=== PATIENT | female | born 1965 | race Caucasian/White ===

== ENCOUNTER 2024-06-18 02:16 | Inpatient (IN) | payer BC, SELFPAY ==
[2024-06-17] VITALS (9 sets, daily range): BP systolic 117–175; BP diastolic 66–100
[2024-06-17 16:47] LABS: % Basophils 0.1 % (0-2); % Eosinophils 0.1 % (0-6); % Immature Granulocytes 0.8 % (0-0.5); % Lymphocytes 21.8 % (20.5-51.1); % Monocytes 6.8 % (1.7-9.3); % Neutrophils 70.4 % (42.2-75.2); Absolute Immature Granulocytes 0.1 10^3/uL (0-0.05); Absolute Lymphocytes 2.7 10^3/uL (1.2-3.4); Absolute Monocytes 0.8 10^3/uL (0.1-0.6); Absolute Neutrophils 8.6 10^3/uL (1.4-6.5); Hematocrit 44.4 % (37.0-47.0); Hemoglobin 15.1 g/dL (12.0-16.0); Mean Corpuscular Hgb 30.3 pg (27.0-31.0); Mean Corpuscular Volume 89.2 fL (81.0-99.0); Mean Platelet Volume 10.9 fL (7.4-10.4); Nucleated Red Blood Cells % 0 %; Platelet Count 317 10^3/uL (130-400); Red Blood Cell Count 4.98 10^6/uL (4.20-5.40); Red Cell Dist. Width 13.5 % (11.5-14.5); White Blood Cell Count 12.1 10^3/uL (4.8-10.8)
[2024-06-17 17:04] LABS: ALT (SGPT) 535 U/L (0-35); AST (SGOT) 246 U/L (14-36); Albumin 4.7 g/dl (3.5-5.0); Alkaline Phosphatase 99 U/L (38-126); Blood Urea Nitrogen 19 mg/dl (7-17); Calcium 9.6 mg/dl (8.4-10.2); Carbon Dioxide 24 mmol/L (22-30); Chloride 108 mmol/L (98-107); Glucose 139 mg/dl (70-99); Lipase 178 U/L (23-300); Potassium 4.3 mmol/L (3.5-5.1); Sodium 142 mmol/L (135-145); Total Bilirubin 0.3 mg/dl (0.2-1.3); Total Protein 7.2 g/dl (6.3-8.2); eGFR > 60.00
--- NOTE | 2024-06-17 17:52 | ED.GENMED ---
History of Present Illness
General
Chief Complaint: Chest Pain
Time Seen by Provider: 06/17/24 17:42
History of Present Illness
History of Present Illness:
58-year-old female with history of hypertension presents to the emergency department for evaluation of chest pain radiating to the thoracic back over the past 3 days. Pain worsened today prompting her ED evaluation. She notes a dull achy pain that
is associated with heart palpitations and occasional sweating. Seems to worsen during physical exertion and improves at rest but does not fully resolve. Does not radiate to the abdomen or to the extremities. No history of similar pain. She does
use tobacco and has a positive family history of cardiac disease. No leg swelling but does report right calf discomfort, travel to [facility] [place] within the past 3 months
Past History
Past History
ED Past Medical History: Psychiatric (Anxiety/depression), Other (Migraine headaches, diverticulosis), Other (Status post cholecystectomy, diverticulosis, depression) and Other (History of cholecystitis)
ED Past Surgical History: Cholecystectomy
Social History
Tobacco: Smoker
Alcohol: Occasional (Once weekly )
Drug: None
Personal:
Living: with family
Employment: Employed
Family History
Family History: Other (Noncontributory )
Review of Systems
Review of Systems
Allergies reviewed?: Yes
All Other Systems: ROS reviewed and negative except as documented in HPI and ROS
Phy Exam
Physical Exam
Physical Exam:
GEN: Well appearing, NAD, WDWN
Eyes: PERRLA, EOMs intact, no scleral icterus
HENT: NCAT, oral mucosa moist
Lungs: CTAB, no wheezes, rales, rhonchi, normal chest wall excursion
Cardiac: RRR, no M/R/G, no peripheral edema. Radial pulses 2+ bilat
Abdomen: S, NT, ND, NABS, no masses or hepatosplenomegaly
Neuro: AO x 3, no focal deficits to BUE/BLE, normal sensation throughout
MSK: No gross deformity or ecchymosis. No edema. No digital clubbing
Skin: No rashes, petechiae. Normal color, no pallor or jaundice.
Psych: Calm, cooperative, proper hygiene
Scores
Heart Score for Chest Pain Patients
STEMI patient?: No
History: Moderately Suspicious
ECG: Normal
Age: >45 - <65 years
Risk Factors: >/= 3 Risk Factors or History of CAD
Troponin: >1 - <3 x Normal Limit
Heart Score for Chest Pain Patients: 5
Heart Score Risk: 20.3% MACE over next 6 weeks
Course
Orders/Labs/Results
Orders:
Orders
06/17/24 16:09
EKG [Electrocardiogram (*1)] Urgent
Reason for Study: Chest Pain
EKG- Treatment ONCE
06/17/24 16:29
Complete Blood Count/With Diff Urgent
Comprehensive Metabolic Panel Urgent
Lipase Urgent
06/17/24 17:51
Aspirin Chewable [Low Strength Aspirin] 324 mg PO NOW STA
Nitroglycerin Sublingual [Nitrostat (Sublingual)] 0.4 mg SL NOW STA
CR Chest - 2 Views Urgent
Comment:
Reason For Exam: chest pain
06/17/24 18:03
D-Dimer Urgent
Troponin I Routine
06/17/24 19:01
EKG- Treatment ONCE
06/17/24 19:21
Nitroglycerin Sublingual [Nitrostat (Sublingual)] 0.4 mg SL NOW STA
06/17/24 20:45
NT-proBNP Urgent
Troponin I Urgent
06/17/24 21:00
Electrocardiogram (*1) Urgent
Reason for Study: Chest Pain
06/17/24 21:20
CT Chest/abd/pel W Iv Cont Urgent
Comment:
Reason For Exam: chest pain/transaminitis
Abnormal Lab Results
06/17/24
16:29
WBC 12.1 H 10^3/uL
(4.8-10.8)
MPV 10.9 H fL
(7.4-10.4)
Abs Immat Gran (auto) 0.1 H 10^3/uL
(0-0.05)
Absolute Neuts (auto) 8.6 H 10^3/uL
(1.4-6.5)
Absolute Monos (auto) 0.8 H 10^3/uL
(0.1-0.6)
Immature Gran % 0.8 H %
(0-0.5)
Chloride 108 H mmol/L
(98-107)
BUN 19 H mg/dl
(7-17)
Glucose 139 H mg/dl
(70-99)
AST 246 H U/L
(14-36)
ALT 535 H* U/L
(0-35)
06/17/24 16:29
06/17/24 16:29
Vital Signs
Initial and Last Documented VS:
Initial Vital Signs
Temp Pulse Resp BP Pulse Ox
98.3 F 96 18 175/100 96
06/17/24 16:19 06/17/24 16:19 06/17/24 16:19 06/17/24 16:19 06/17/24 16:19
Last Documented Vital Signs
Temp Pulse Resp BP Pulse Ox
98.3 F 84 24 125/79 93
06/17/24 16:19 06/17/24 22:45 06/17/24 22:45 06/17/24 22:00 06/17/24 22:45
MDM/Problems Addressed
MDM/Problems Addressed:
Unclear etiology of chest pain, stones consider coronary syndrome at this time given exertional chest pain and nonnegative troponin. She is also noted to have significant transaminitis however nonobstructive pattern. There is no evidence for acute
disease causing her transaminitis. D-dimer is reassuring against PE and she does not have a clinical presentation concerning for aortic dissection. Ultimately she is high close for coronary disease exertional discomfort negative troponins we will
admit to the hospitalist service for further cardiac workup and cardiology consultation
*Critical Care Note
Total Time (30-74mins, 75-104mins- exclusive of procedures): Not Applicable
ED Attending Note
-
Portions of this chart may have been created with voice recognition software.� Occasional wrong word or��sound alike� substitutions may have occurred due to the inherent limitations of voice recognition software.
Discharge Plan
Departure
Patient Disposition: Admit
Date of Disposition: 06/17/24
Time of Disposition: 22:57
Admit to: Telemetry
Presentation/result/management discussed w/ accepting MD/DO: Hospitalist
Discharge Problem:
Chest pain with high risk of acute coronary syndrome
Prescriptions:
No Action
venlafaxine [Effexor] 100 MG tablet
300 mg PO DAILY
topiramate 100 MG tablet
100 mg PO BID
ibuprofen 600 MG tablet
600 mg PO Q6HPRN PRN (Reason: pain with food) Qty: 20 0RF
rizatriptan [Maxalt] 10 MG tablet
10 mg PO ONCE PRN (Reason: headache) Qty: 3 0RF
Rx Instructions:
take 2-3 hours later if still with headache but take no more than 2 in 24 hours as we spoke about
atorvastatin 10 MG tablet
10 mg PO DAILY
methylphenidate HCl [Concerta] 36 MG tablet extended release 24hr
36 mg PO DAILY
lurasidone [Latuda] 20 MG tablet
20 mg PO HS
amoxicillin-pot clavulanate 1 TABLET tablet
1 tab PO BID Qty: 28 0RF
oxycodone-acetaminophen 5 MG/325 MG tablet
1 tab PO Q4HPRN PRN (Reason: pain) Qty: 16 0RF
Referrals:
Berkley Barker DO [Family Provider] -
Interventions
Interventions:
*Risk Screen - Suicide Last Done: 06/17/24 16:19
*General Assessment Last Done: 06/17/24 16:19
*Neglect/Abuse Screening Last Done: 06/17/24 19:33
ED- Fall Risk Assessment Last Done: 06/17/24 20:10
*ED COVID-19 Vaccine History Last Done: 06/17/24 16:19
ED- Cardiac Assessment Last Done: 06/17/24 19:33
Discharge Date and Time
Print Language: BULGARIAN
[2024-06-17] MEDS: NITROSTAT (SUBLINGUAL) 0.4 MG SL ×2 (17:55→19:25)
[2024-06-17] MEDS: LOW STRENGTH ASPIRIN 324 MG PO (17:55)
[2024-06-17 18:28] LABS: D-Dimer 0.45 ug/mlFEU (0.00-0.50)
[2024-06-17 18:36] LABS: Troponin I 0.024 ng/ml
[2024-06-17 21:18] LABS: NT-proBNP 49.9 pg/ml; Troponin I 0.027 ng/ml
[2024-06-18] VITALS (7 sets, daily range): BP systolic 120–151; BP diastolic 71–87; BMI 35.7
--- NOTE | 2024-06-18 00:04 | HPS.HSE ---
Family Physician
-
Family Physician: Berkley Barker
Chief Complaint
-
Midepigastric pain through the back
History of Present Illness
58-year-old female complaining of upper mid epigastric pain radiating through to her back over the past 3 days. She reports the pain was worse when it started 2 to 3 days ago., However she has also had decreased appetite not drinking her morning
coffee in the a.m. She has had pain associated with nausea, belching, diaphoresis, anxiety, decreased appetite. She has not paid attention whether the pain is worse after eating however notes she is not able to finish things such as her morning
cup of coffee. She denies any current alcohol use. She states used to drink 4-5 nights a week 4 to drinks daily age [age] over the past 11 years she typically drinks once a month. She denies any history of IV drug use, hepatitis. She does have
tattoos. She also reports a constant headache for the past 45 days her neurologist recently put her on 60 mg of prednisone x 5 days then 40 mg x 2 then 20 mg for the next 2 days to break her migraine. She has also been taking Nurtec only once a
day she is allowed 8 tablets/month. She has been taking Fioricet 1 tablet every 4 hours which equals a Tylenol amount of 1000 mg daily for the last 30 to 45 days for a left frontal parietal headache which has not improved. She reports she vapes
all day long she was a former smoker on and off for 15 years approximately 1 pack a day switched to vaping 5 years ago.
Patient's past medical history of cholecystectomy, anxiety, depression, migraine headaches, diverticulosis, active smoker vapes multiple times a day prior nicotine cigarette smoker 15 years 1 pack a day
Medical History
Past Medical History
Past Medical History: Reports Other
Additional Past Medical History:
cholecystectomy, anxiety, depression, migraine headaches, diverticulosis, active smoker vapes multiple times a day prior nicotine cigarette smoker 15 years 1 pack a day
Past Surgical History: Reports Other
Additional Past Surgical History:
Cholecystectomy
Social History
Tobacco: Vaping (All day long, former 15-year 1 pack a day nicotine smoker stopped 5 years ago converted to vapes)
Alcohol: Former (Age [age] 4-5 drinks a week +4-5 drinks daily now drinks once a month past 8 years)
Drug: None
Personal:
Living: With Family
Family History
Family History: Not pertinent
Allergies / Home Medications
Allergies reflects when Allergies were last updated in [facility].
Home Medications with original date entered in [facility]
Allergy/Medication List:
Medications on admission are unable to be verified or confirmed at this time.
Review of Systems
-
History Source: Patient
A 12 point ROS was completed and negative except as noted: Yes
Constitutional: Denies Fever, Fatigue or Chills
EENT: Denies Sore Throat or Runny Nose
Respiratory: Denies Cough or Trouble Breathing
Cardiac: Reports Chest Pain (Epigastric pain) and Diaphoresis (Epigastric pain with diaphoresis); Denies Syncope
Abdomen/GI: Reports Abdominal Pain (Epigastric), Nausea and Other (Decreased oral appetite); Denies Vomiting, Diarrhea, Constipated, Bloody Stools or Black Stools
: Denies Dysuria, Frequency, Flank Pain, Incontinence or Difficulty Voiding
Musculoskeletal: Denies Joint Pain or Edema
Skin: Denies Itching or Rash
Neurological: Denies Dizzy, Headache or Weakness
Endocrine: Reports No Symptoms
Hematologic/Lymphatic: Reports No Symptoms
Psych: Reports Calm
Physical Exam
Vital Signs
Vital Signs
Temp Pulse Resp BP Pulse Ox
98.3 F 84 24 125/79 93
06/17/24 16:19 06/17/24 22:45 06/17/24 22:45 06/17/24 22:00 06/17/24 22:45
Physical Exam
General: Conversant and Pain (Left temporal headache); No Fever or Chills
HEENT: NormoCephalic, Anicteric, Moist mucous membranes, PERRLA, [place] Conjunctivae, No Ptosis and Neck Nontender
Respiratory: Clear; No Wheezes, Rales or Rhonchi
Cardiac: S1/S2 and Regular Rhythm; No Murmur, Rub, Gallop or Peripheral Edema
GI: Soft, Non Tender, Non Distended, Normal Bowel Sounds and No Hepatosplenomegaly
Rectal: Deferred by Provider
Genito-urinary: Deferred by me
Musculoskeletal: No Clubbing, No Cyanosis and No Edema
Skin: Warm and Dry; No Rash or Jaundice
Neuro: AO x 3, No Motor Deficits, Nonfocal/grossly intact, Cranial Nerves Intact and No Sensory Deficits; No Slurred Speech, Facial Droop, Tremors or Sedated
Psych: Calm
Laboratory Results
-
06/17/24 16:29
06/17/24 16:29
Laboratory Results
Total Bilirubin 0.3 mg/dl (0.2-1.3) 06/17/24 16:29
AST 246 U/L (14-36) H 06/17/24 16:29
ALT 535 U/L (0-35) H* 06/17/24 16:29
Alkaline Phosphatase 99 U/L (38-126) 06/17/24 16:29
Troponin I 0.027 ng/ml 06/17/24 20:45
Lipase 178 U/L (23-300) 06/17/24 16:29
Data Reviewed
-
CT Scan: Report Reviewed by me
Lab Data: Labs Reviewed by me
Impression/Plan
-
Impression/plan:
Inpatient telemetry
#Acute transaminitis/mild diffuse intrahepatic biliary dilation concern for intrahepatic bile duct stone versus recently passed
ALT 535, AST 246, alk phos 99
WBC 12.1 with slight left shift, temp 98.3, 125/79
-IV NSS
-Consult GI
-Check lipid profile
-Check Tylenol level given patient has been taking 1000 mg of Tylenol straight for the last 30 to 45 days
-Follow CBC, CMP check GGT, B12, folate
CT chest abdomen pelvis with IV contrast:
CHEST:
1. Moderate-sized calcified central superior disc extrusion at T7/T8 causing mild spinal cord compression and central canal stenosis.
2. Mild dependent subsegmental atelectasis and scarring in the right lower lobe.
ABDOMEN and PELVIS:
1. Mild diffuse hepatic steatosis.
2. Mild diffuse intrahepatic biliary dilatation.
3. Previous cholecystectomy.
4. Moderate amount of fecal material in the proximal colon.
5. Grade 1 anterolistheses of L3 on L4 and L4 on L5 secondary to severe facet joint arthrosis.
6. Transitional lumbosacral vertebral segment (sacralization of L5).
#Nonischemic myocardial injury
Troponin 0.024 > troponin 0.027-will trend
EK bpm, QTc 420 MS sinus rhythm with PACs otherwise normal compared to EKG June 17 at 1611
#Acute on chronic intractable migraine headache
-Patient recently is almost finished a prednisone taper 60 mg x 5 days, 40 mg x 2 days then 20 mg x 2 days(patient has 2 days left of this dose) she reports this was prescribed by her neurologist
Dr.ROY GIRARD
-Will check Tylenol level as she has been taking 1000 mg straight for the last 30 to 45 days and her 1 tab of Fioricet
-Patient takes Nurtec 1 a day 8 times a month
-Will try IV Benadryl for pain, possible Toradol
#Nicotine vape abuse
Prior nicotine cigarette abuse
-Patient vapes she states all day long
-Prior cigarette smoker 1 pack a day x 15 years on and off converted to vape 5 years ago
-Cessation advised
-Nicotine patch 21 mg
#Former alcohol abuse/binge drinker
Drink from age [age] 4 to 5 days a week 4-6 cocktails, beer or wine
-Last 8 years drinks approximately 1-2 drinks a month
-Check GGT, B12, folate
Obesity due to excess calorie consumption
Weight loss recommended
Affects all aspects of care
DVT prophylaxis
Subcu heparin
Full code
--- NOTE | 2024-06-18 00:06 | W.PN.UPDATE ---
Update Note
Progress Note Update
Patient seen condition with PILLO. I agree with findings of history and physical. As well as the assessment and plan unless otherwise stated.
Briefly, this is a 58-year-old female with past medical history significant for hyperlipidemia, anxiety, depression, migraine headaches and status post cholecystectomy who presents to the emergency department with 3 days of intermittent chest pain.
Patient reports chest pain associated with exertion. She reports that she has been doing more housework lately and when she carries objects around the house she notices substernal chest pain as well as epigastric chest pain radiating to the back.
Then she stops and the chest pain actually intensifies with pounding in her chest after several minutes this subsides and she is able to rest and then continue her activity. She reports that there is association with diaphoresis. She denies any
inspirational chest pain. She denies any cough fevers chills. She denies any sick contacts. Patient denies any true asthma COPD. She denies any associated nausea or vomiting. She denies any diarrhea. She denies any prior history of CAD or
hypertension. She reports family history of heart disease but unable to specify with CAD or not. Patient does report dyspnea and chest pain with any higher level physical activity.
In the emergency department she was afebrile, blood pressure was 125/60 with a pulse of 82 satting 94% on room air. CBC had a white count of 12.1 but otherwise unremarkable. Electrolytes BUN/creatinine were unremarkable. ECG shows normal sinus
rhythm at rate of 83 without any ischemic changes. Troponin was 0.02 and also 0.02 on the next. Chest x-ray shows no acute infiltrate. She had D-dimer which was borderline and then had a CT chest abdomen pelvis. There is no pulmonary embolism.
Had mild diffuse hepatic steatosis with mild diffuse intrahepatic biliary dilation.
Patient is currently chest pain-free while resting. She did have episode of chest pain that responded to sublingual nitroglycerin.
Assessment and plan
Obese 58-year-old with history of hyperlipidemia presenting to the emergency department with somewhat atypical chest pain which is localized to the epigastric region radiating to the back but associated with some degree of physical exertion. Also
associated with some dyspnea on exertion and diaphoresis. She has moderate risk for CAD. Negative EKG, negative troponin.
Chest pain
- admit to obs telemetry
- negative trop no need to cycle but can get repeat with cp
- ecg with cp then nitroglycerin
- echo in am, lipid panel and a1c
- outpatient echo
Hepatic steatosis with diffuse intrahepatic biliary ductal dilation. Moderate degree of transaminitis w/o obstructive pattern. Recent high tylenol use (1g/day) and prior ETOH use. Imaging does not show obstruction. Possible biliary dz, toxic vs
viral hepatitis vs MASLD/MASH. Tylenol level is negative.
- trend lfts
- acute viral panel
- hold tylenol for now
- lipid panel as above
- continue her statin for now
- GI consult, further imaging to rule out other causes
DVT PPX - lovenox sq
Code status - full code
[2024-06-18 00:59] LABS: Acetaminophen < 10 ug/ml (10-30)
--- NOTE | 2024-06-18 02:07 | DOWNTIME ---
There was a [employer] Downtime on 06/18/2024 from 0100 to 06/18/2024 at 0205 . Downtime documentation of patient's care, including medication administrations, has been reconciled in the electronic record per guidelines. Refer to the
patient's paper chart under the miscellaneous tab to see printed paper medication records and downtime forms.
--- NOTE | 2024-06-18 03:00 | PTCARENOTE ---
Received patient from ED via stretcher. Patient ambulated from stretcher to bed independently. Oriented patient to room and placed call seo within reach.
[2024-06-18] MEDS: NICODERM TRANSDERMAL 21 MG TRANSDERM (03:24)
[2024-06-18] MEDS: NSS 1000 IV ×2 (03:24→15:27)
[2024-06-18] MEDS: REGLAN 10 MG IV ×2 (03:25→13:34)
[2024-06-18] MEDS: TORADOL 15 MG IV ×3 (03:26→20:18)
[2024-06-18] MEDS: NSS (PRESERVATIVE FREE) 10 ML IV ×3 (03:26→20:15)
[2024-06-18] MEDS: PROTONIX IV 40 MG IV ×3 (03:26→20:15)
[2024-06-18 05:24] LABS: INR 0.95
[2024-06-18 05:27] LABS: % Basophils 0.3 % (0-2); % Immature Granulocytes 0.7 % (0-0.5); % Lymphocytes 49.4 % (20.5-51.1); % Monocytes 7.7 % (1.7-9.3); % Neutrophils 40.9 % (42.2-75.2); Absolute Eosinophils 0.1 10^3/uL (0-0.7); Absolute Immature Granulocytes 0.1 10^3/uL (0-0.05); Absolute Lymphocytes 6.7 10^3/uL (1.2-3.4); Absolute Neutrophils 5.5 10^3/uL (1.4-6.5); Hematocrit 40.8 % (37.0-47.0); Mean Corp Hgb Conc. 34.3 g/dL (33.0-37.0); Mean Corpuscular Hgb 30.7 pg (27.0-31.0); Mean Corpuscular Volume 89.5 fL (81.0-99.0); Mean Platelet Volume 10.9 fL (7.4-10.4); Nucleated Red Blood Cells % 0 %; Platelet Count 252 10^3/uL (130-400); Red Blood Cell Count 4.56 10^6/uL (4.20-5.40); Red Cell Dist. Width 13.7 % (11.5-14.5); White Blood Cell Count 13.5 10^3/uL (4.8-10.8)
[2024-06-18 05:50] LABS: APTT 23.3 Sec (23.4-35.0)
[2024-06-18 06:06] LABS: ALT (SGPT) 520 U/L (0-35); AST (SGOT) 178 U/L (14-36); Albumin 4.1 g/dl (3.5-5.0); Alkaline Phosphatase 89 U/L (38-126); Blood Urea Nitrogen 22 mg/dl (7-17); Carbon Dioxide 24 mmol/L (22-30); Chloride 107 mmol/L (98-107); Estimated Creatinine Clearance 99 ml/min; Glucose 81 mg/dl (70-99); Phosphorus 4.1 mg/dl (2.5-4.5); Sodium 141 mmol/L (135-145); Total Bilirubin 0.2 mg/dl (0.2-1.3); Total Protein 6.4 g/dl (6.3-8.2); eGFR > 60.00
[2024-06-18 06:09] LABS: B-Hydroxybutyrate 0.11 mmol/L (0.02-0.27)
[2024-06-18 06:28] LABS: Alcohol None Detected; GGTP 214 U/L (12-43)
[2024-06-18 07:07] LABS: Folate 17.2 ng/ml (2.76-20); Vitamin B12 767 pg/ml (239-931)
--- NOTE | 2024-06-18 07:35 | CON.GI ---
Addendum entered and electronically signed by Yamilet Vasquez MD 06/18/24 20:10:
I saw and examined the patient.
The DIRECTOR OF ROTC's note was reviewed and I agree with the note.
-chest pain
-elevated LFT/ CT imaging - fatty liver/ mild intrahepatic biliary dilatation/ hx of cholecystectomy.
-chronic constipation- with moderate stool on CT
-T7/[address] chest
plan
will follow MRI/MRCP
trend LFT
cardiology eval for chest pain at the discretion of medical team
Original Note:
Consultation
-
Date/Time Consultation Requested: 06/18/24 0030
Date/Time Consultation Performed: 06/18/24 1030
Requesting Provider: PILLO Rome
Performing Provider: PILLO Steven, Yamilet Vasquez MD
Reason for Consultation: chest pain
Medical History
Chief Complaint / HPI
Chief Complaint: chest pain
History of Present Illness:
Pt is a 58yo present with hx prior ev, anxiety/depression, migraines, diverticulosis, hypercholesterolemia, tobacco/vape abuse, D+E with onset of chest pain last 2-3 days . On admission noted with WBC 12,100, with bili 0.3, AST 246, ALT 535,
alk phos 99. with slight improvement after admission. CT chest/abd/pelvis with noted T7/8 compression with central disc extrusion T7/8 with mild spinal cord compression and canal stenosis, hepatic steatosis, mild diffuse intrahepatic biliary
dilatation, prior colon moderate stool, lumbar spinal disease. Peak trop 0.027. Pt did have some improvement with nitro in ER. + recent Tylenol use with level <10 on admission.
Pt states pain better with rest and worse with activity with slight improvement today. She has some chronic constipation stools weekly nausea with symptoms for years and EGD in 2021 noted normal esophagus, gastric erythema, normal duodenum,
few gastric polyps bx mild chronic inflammation. She denies vomiting, diarrhea, or rectal bleeding. + NSAID use about 1 tablet weekly. 07/2016 colonoscopy coombs The entire examined colon appeared normal repeat 5 years.
Past Medical History
Past Medical History: Hypercholesterolemia, Psychiatric (anxiety/depression) and Other (migraine, diverticulosis, hepatic steatosis )
Past Surgical History: Cholecystectomy, Gynecological (D+E with tubal) and Other (corneal surgery )
Social History
Tobacco: Vaping
Alcohol: Former
Drug: None
Personal:
Living: With Family
Employment: Not Employed
Family History
Family History: Other (son with fatty liver )
Allergies / Home Medications
Allergy/AdvReac Type Severity Reaction Status Date / Time
Sulfa (Sulfonamide Allergy Severe Swelling Verified 06/17/24 16:22
Antibiotics)
�Medication �Instructions �Recorded
topiramate 100 mg tablet 100 mg PO BID 03/02/09
venlafaxine 100 mg tablet (Effexor) 300 mg PO DAILY 03/02/09
ibuprofen 600 mg tablet 600 mg PO Q6HPRN PRN pain with 01/13/13
food #20 tabs
rizatriptan 10 mg tablet (Maxalt) 10 mg PO ONCE PRN headache #3 tabs 05/06/17
amoxicillin 875 mg-potassium 1 tab PO BID #28 tabs 01/10/21
clavulanate 125 mg tablet
atorvastatin 10 mg tablet 10 mg PO DAILY 01/10/21
lurasidone 20 mg tablet (Latuda) 20 mg PO HS 01/10/21
methylphenidate HCl 36 mg 36 mg PO DAILY 01/10/21
tablet,extended release 24 hr
(Concerta)
oxycodone-acetaminophen 5 mg-325 1 tab PO Q4HPRN PRN pain #16 tabs 01/10/21
mg tablet
Review of Systems
-
History Source: Patient
Cardiac: Reports Chest Pain
Abdomen/GI: Reports Nausea (chronic ) and Constipated
: Reports No Symptoms
Musculoskeletal: Reports No Symptoms
Skin: Reports No Symptoms
Neurological: Reports Weakness
Endocrine: Reports No Symptoms
Hematologic/Lymphatic: Reports No Symptoms
Vital Signs
Temp Pulse Resp BP Pulse Ox
97.9 F 64 18 120/83 98
06/18/24 02:41 06/18/24 02:41 06/18/24 02:41 06/18/24 02:41 06/18/24 03:00
Physical Exam
Exam
General: Well Developed, Well Nourished and No Apparent Distress
HEENT: Normocephalic and Anicteric
Respiratory: Clear
Cardiac: Regular Rhythm
GI: Soft, Non Tender and Non Distended
Genito-urinary: No Costovertebral Tender
Musculoskeletal: No Clubbing and No Cyanosis
Skin: Warm and Dry
Neuro: Awake, Alert and AO x 3
Psych: Calm
Results
WBC 13.5 10^3/uL (4.8-10.8) H 06/18/24 04:59
Hgb 14.0 g/dL (12.0-16.0) 06/18/24 04:59
Hct 40.8 % (37.0-47.0) 06/18/24 04:59
MCV 89.5 fL (81.0-99.0) 06/18/24 04:59
Plt Count 252 10^3/uL (130-400) D 06/18/24 04:59
Absolute Neuts (auto) 5.5 10^3/uL (1.4-6.5) 06/18/24 04:59
PT 13.0 Sec (11.4-14.6) 06/18/24 04:56
INR 0.95 06/18/24 04:56
APTT 23.3 Sec (23.4-35.0) L 06/18/24 04:56
Sodium 141 mmol/L (135-145) 06/18/24 04:59
Potassium 4.0 mmol/L (3.5-5.1) 06/18/24 04:59
Chloride 107 mmol/L (98-107) 06/18/24 04:59
Carbon Dioxide 24 mmol/L (22-30) 06/18/24 04:59
BUN 22 mg/dl (7-17) H 06/18/24 04:59
Creatinine 0.7 mg/dL (0.6-1.0) 06/18/24 04:59
Calcium 9.0 mg/dl (8.4-10.2) 06/18/24 04:59
Total Bilirubin 0.2 mg/dl (0.2-1.3) 06/18/24 04:59
AST 178 U/L (14-36) H 06/18/24 04:59
ALT 520 U/L (0-35) H* 06/18/24 04:59
Alkaline Phosphatase 89 U/L (38-126) 06/18/24 04:59
Lipase 178 U/L (23-300) 06/17/24 16:29
Diagnostic Image Results:
06/17/24 CT Chest/abd/pel W Iv Cont
1. Moderate-sized calcified central superior disc extrusion at T7/T8 causing mild spinal cord compression and central canal stenosis.
2. Mild dependent subsegmental atelectasis and scarring in the right lower lobe.
ABDOMEN and PELVIS:
1. Mild diffuse hepatic steatosis.
2. Mild diffuse intrahepatic biliary dilatation.
3. Previous cholecystectomy.
4. Moderate amount of fecal material in the proximal colon.
5. Grade 1 anterolisthesis of L3 on L4 and L4 on L5 secondary to severe facet joint arthrosis.
6. Transitional lumbosacral vertebral segment (sacralization of L5).
Prior GI Procedures:
07/2021 EGD Coom[facility] - Normal esophagus. Biopsied.
- Bilious gastric fluid.
- Erythematous mucosa in the gastric body and antrum.
Biopsied.
- Normal examined duodenum. Biopsied.
- A few gastric polyps. Biopsied.
07/2016 colonoscopy coombs The entire examined colon appeared normal repeat 5 years
Assessment / Plan
-
Pt is a 58yo present with hx prior ev, anxiety/depression, migraines, diverticulosis, hypercholesterolemia, tobacco/vape abuse, D+E with onset of chest pain last 2-3 days . On admission noted with WBC 12,100, with bili 0.3, AST 246, ALT 535,
alk phos 99. with slight improvement after admission. CT chest/abd/pelvis with noted T7/8 compression with central disc extrusion T7/8 with mild spinal cord compression and canal stenosis, hepatic steatosis, mild diffuse intrahepatic biliary
dilatation, prior colon moderate stool, lumbar spinal disease. Peak trop 0.027. Pt did respond to nitro in ER.
-exertional chest pain
-elevated LFT's
-leukocytosis
-mild diffuse intrahepatic biliary dilatation
-hepatic steatosis on CT
-chronic constipation- with moderate stool on CT
-T7/[address] chest
-occasional NSAID use
-hx ev
other med problems:
-tobacco/vape use
-hypercholesteremia
-diverticulosis
-migraines
-anxiety/depression
-family hx fatty liver
PLAN:
Etiology of chest pain related to cardiac etiology though trop low on admission but some improvement with nitro, biliary with some rise in LFT's and ductal dilation on CT, constipation related as chronic issue with chronic nausea, compression fx vs
other
for MRI abdomen for further eval
slight improved LFT's today
add Miralax daily to treat constipation
await further hospitalist eval for cardiac etiology and noted T 7/8 compression on imaging
hepatitis panel pending
Tylenol <10
OP follow up for fatty liver
-
-
Thank you for consultation and allowing me to participate in the patient's care. Please call the manager registration GI physician during the after hours with any questions or concerns.
[2024-06-18] MEDS: HEPARIN 5000 UNITS SC (08:37)
[2024-06-18] MEDS: MIRALAX 17 GRAMS PO (12:37)
[2024-06-18 13:39] LABS: Amphetamines Negative (Negative); Barbiturates Positive (Negative); Benzodiazepines Negative (Negative); Buprenorphine Negative (Negative); Cocaine Negative (Negative); Marijuana Negative (Negative); Methadone Negative (Negative); Methamphetamines Negative (Negative); Opiates Negative (Negative); Phencyclidine Negative (Negative); Tricyclic Antidepressants Negative (Negative)
--- NOTE | 2024-06-18 14:33 | W.PN.HOSP.TC ---
Today's Communication/Plan
-
Cardiology eval
Follow LFTS
Assessment / Plan
Assessment / Plan
58-year-old female with mid epigastric pain, decreased appetite. She recently had headaches for which she was prescribed prednisone for migraines. She also takes Nurtec once a day and Fioricet she is a former smoker but she vapes now
CT scan of chest abdomen and [id number] calcified central superior disc extrusion T7/T8 causing mild spinal cord compression and central canal stenosis. Mild dependent subsegmental atelectasis and scarring in the right lower lobe.
Mild diffuse hepatic steatosis, diffuse intrahepatic biliary dilatation, previous cholecystectomy, moderate amount of fecal material in the proximal colon, grade 1 anterolisthesis of L3 on L4 and L4 on L5. Sacralization of L5
MRI-prior cholecystectomy. Mild prominence of the intrahepatic and extrahepatic biliary ducts without evidence of choledocholithiasis or biliary obstruction. Could represent cholecystectomy or possibly recently passed stone.
Awake alert oriented
Cardiovascular system S1-S2 appreciated
Chest clear to auscultation
No spine tenderness
Abdomen soft and nontender
# Chest pain-
States mostly exertional also has exertional shortness of breath.
She has seen Dr. Bernardino Marie
? Gastritis from recent prednisone, ibuprofen-continue PPI. Hold off on any steroids
Colonoscopy July 2016-normal
Endoscopy July 2021-normal esophagus, erythematous mucosa in the gastric body and antrum, normal duodenum, few gastric polyps
EKG sinus rhythm with PACs-2 sets of troponins negative
Cardiology consultation also requested as patient states that she has a family history of heart disease.
# Acute on chronic intractable migraine headache
She finished prednisone taper prescribed by her neurologist Dr. Morris
Takes Nurtec-to be continued
Also on Effexor, Topamax-continue
Neurology evaluation
# Abnormal LFTs, dilated intrahepatic biliary ducts-check MRI
Check hepatitis panel
Tylenol level less than 10-hold Tylenol and statin
GI evaluation
MRI as above
# Vaping of nicotine
History of smoking cigarettes
Cessation counseling
Nicotine patch
# History of alcohol abuse in the past until age 41
No 1-2 drinks per month
# Hyperlipidemia-hold statin secondary to elevated LFTs
# Anxiety and depression-continue Latuda, Effexor
# Hepatic steatosis
# Central superior disc extrusion T7 and T8, anterolisthesis L3 on L4 and L4 on [id number] with outpatient spine-patient made aware. Outpatient follow-up with spine
# Obesity with a BMI of 35
# DVT prophylaxis-Lovenox
# Full code
Anticipated Discharge: Within 24 hours
Subjective/Interval History
-
Date of Service: June 18, 2024
Objective Data
-
Labs:
Laboratory Results
06/18/24 06/18/24
04:56 04:59
WBC 13.5 H
Hgb 14.0
Hct 40.8
Plt Count 252 D
PT 13.0
INR 0.95
APTT 23.3 L
Sodium 141
Potassium 4.0
Chloride 107
Carbon Dioxide 24
BUN 22 H
Creatinine 0.7
Glucose 81
Calcium 9.0
Total Bilirubin 0.2
AST 178 H
ALT 520 H*
Alkaline Phosphatase 89
Vital Signs:
Vital Signs
Temp Pulse Resp BP Pulse Ox
97.7 F 62 20 130/75 96
06/18/24 12:09 06/18/24 12:09 06/18/24 12:09 06/18/24 12:09 06/18/24 12:09
I&O
06/17/24 06/18/24 06/19/24
06:59 06:59 06:59
Intake Total 0 / 0
Balance 0 / 0
--- NOTE | 2024-06-18 14:36 | CON.CAR ---
Addendum entered and electronically signed by Zay Macdonald MD 06/18/24 15:45:
I saw and examined the patient.
The SURFACE PLATE FINISHER or PA's note was reviewed and I agree with the note.
Comment: General: Well developed, well nourished in NAD.
Neck: Supple, no JVD, HJR, carotids +2 B/L, no bruits bilaterally.
Heart: Non displaced PMI, RRR, no murmurs, No S3, S4, no rubs.
Lungs: Clear to auscultation bilaterally, no wheeze, rhonchi, rubs bilaterally,
normal expiratory phase.
Abdomen: Normal bowel sounds, soft, non-tender, non-distended.
Extremities: No clubbing, cyanosis or edema bilaterally.
Neuro: Grossly nonfocal, awake, alert and oriented x3.
Deanna has a history of daily vaping, hypertension, hyperlipidemia. She presents with chest pain and shortness of breath. She had CT of the chest was negative for pulmonary embolism. Troponin was negative x 2. ECG with nonspecific ST and T wave
changes. She initially was given nitro with some relief and a second nitro had additional relief. Of note her chest pain was for 30 minutes.
Will check echocardiogram. Will check exercise sestamibi stress test to exclude ischemia. If negative symptoms are not likely cardiac.
Original Note:
Consultation
Consultation Request
Date/Time Consultation Requested: 06/18/24
Date/Time Consultation Performed: 06/18/24
Requesting Provider: Dr. Rojas
Performing Provider: Dr. Macdonald
Reason for Consultation: Chest pain
Medical History
-
History of Present Illness:
Patient came to [facility] yesterday with a BEAN for 45 days and chest pain for 3 days and was admitted with elevated LFTs, cardiology has been consulted for chest pain and ATKINSON. Patient went to [facility] for chest pain radiating to her back over the last 3 days.
Chest pain happening with activity and resolves with rest. No resting symptoms. Patient also has ATKINSON. Patient had CT chest that was negative for PE and no calcific atherosclerotic plaque in the coronary arteries. Troponin was within the normal range
x2. ECG was SR with nonspecific ST changes. Patient was given NTG SL x1 with some improvement in pain and so a 2nd dose of NTG SL was given with additional pain relief. Patient had similar chest pain and ATKINSON in 2021 and saw ATC at that time with
testing noted above.
PMH:
Daily vaping and former smoker
h/o ETOH use disorder, cut down to once a month in 2007
HTN
Hyperlipidemia
Past Medical History
Past Medical History: Other (in HPI)
Past Surgical History: Cholecystectomy and Gynecological
Social History
Tobacco: Vaping
Alcohol: Other (used to drink 4 drinks a day, but cut back to a few times a month years)
Drug: None
Personal:
Living: With Family
Family History
Family History: Cancer
Allergies / Home Medications
Allergy/AdvReac Type Severity Reaction Status Date / Time
Sulfa (Sulfonamide Allergy Severe Swelling Verified 06/17/24 16:22
Antibiotics)
�Medication �Instructions �Recorded �Confirmed �Type
topiramate 100 mg tablet 100 mg PO BID 03/02/09 06/18/24 History
venlafaxine 100 mg tablet (Effexor) 375 mg PO DAILY 03/02/09 06/18/24 History
ibuprofen 600 mg tablet 600 mg PO Q6HPRN PRN pain with 01/13/13 06/18/24 Rx
food #20 tabs
atorvastatin 10 mg tablet 10 mg PO DAILY 01/10/21 06/18/24 History
lurasidone 20 mg tablet (Latuda) 20 mg PO HS 01/10/21 06/18/24 History
methylphenidate HCl 36 mg 36 mg PO DAILY 01/10/21 06/18/24 History
tablet,extended release 24 hr
(Concerta)
oxycodone-acetaminophen 5 mg-325 1 tab PO Q4HPRN PRN pain #16 tabs 01/10/21 06/18/24 Rx
mg tablet
Metoprolol 25 mg PO DAILY 06/18/24 06/18/24 History
omeprazole 20 mg tablet,delayed 20 mg PO DAILY 06/18/24 06/18/24 History
release
topiramate 150 mg PO BID 06/18/24 06/18/24 History
Review of Systems
-
History Source: Patient
All other systems: Negative unless noted
Physical Exam
Vital Signs
Temp Pulse Resp BP Pulse Ox
97.7 F 62 20 130/75 96
06/18/24 12:09 06/18/24 12:09 06/18/24 12:09 06/18/24 12:09 06/18/24 12:09
GEN: NAD. AAOx3
HEENT: mmm
LUNGS: RA. CTA B/L without audible wheeze
CV: Reg, S1/S2, no murmur
ABD: soft, BS+, NT, ND
EXT: No clubbing, cyanosis, lesions or edema B/L
NEURO: Gross non-focal
SKIN: Warm, dry and pink. No rash
Lab Results
06/18/24 04:59
06/18/24 04:59
Troponin I 0.027 ng/ml 06/17/24 20:45
Jms-N-Auywylvteyl Pept 49.9 pg/ml 06/17/24 20:45
Impression / Plan
-
PCP: Dr. Berkley Barker
Cardiology: Dr. Marie, last seen in 2021
Impression:
Admitted with chest pain 06/17/24
ATKINSON
Serially normal Troponin
BEAN
Elevated LFTs
Daily vaping and former smoker
h/o ETOH use disorder, cut down to once a month in 2007
HTN
Hyperlipidemia
Exercise stress test 08/29/21: GVH study, completed 9 minutes 36 seconds of Giuliano protocol reaching 85% of maximum predicted heart rate with no ST segment depression observed before during or after exercise, considered a negative stress test
Cardiac MRI 10/17/21: DH study, no MRI evidence of diffuse infiltrative myocardial disease, global systolic RV/LV function normal, LV viability normal, none valvular disease
Echo 08/10/21: GVH study, EF 50 to 55%, mild concentric LVH, top normal RV size with normal RV systolic function and mildly increased RV wall thickness, no MS/MR, normal aortic valve without evidence of stenosis or insufficiency
Plan:
-Patient came to [facility] yesterday with a BEAN for 45 days and chest pain for 3 days and was admitted with elevated LFTs, cardiology has been consulted for chest pain and ATKINSON. Patient went to [facility] for chest pain radiating to her back over the last 3
days. Chest pain happening with activity and resolves with rest. No resting symptoms. Patient also has ATKINSON. Patient had CT chest that was negative for PE and no calcific atherosclerotic plaque in the coronary arteries. Troponin was within the normal
range x2. ECG was SR with nonspecific ST changes. Patient was given NTG SL x1 with some improvement in pain and so a 2nd dose of NTG SL was given with additional pain relief. Patient had similar chest pain and ATKINSON in 2021 and saw ATC at that time
with testing noted above.
-ECG reviewed by me is SR with nonspecific ST changes. Tele reviewed by me is SR without arrhythmia.
-Troponin serially normal despite days of chest pain.
-Chest pain improved with NTG SL x2 in the ER.
-Check echo, ordered by me
-Echo in 2021 showed mildly increased RV wall thickness that led to cardiac MRI which was unremarkable, but patient did not remember any of this testing.
-Check Lexiscan stress test in AM, ordered by me.
-Will restart outpatient dose of Toprol XL 25 mg daily after stress test tomorrow. BP overall controlled while outpatient dose of Toprol XL is on hold.
-GI saw patient and MRI abdomen ordered, possible recently passed stone.
-Outpatient dose of atorvastatin 10 mg daily is on hold due to elevated LFTs.
[2024-06-18] MEDS: LOVENOX 40 MG SC (17:32)
[2024-06-18] MEDS: TOPAMAX 50 MG PO (20:17)
[2024-06-18] MEDS: TOPAMAX 100 MG PO (20:17)
[2024-06-18] MEDS: LATUDA 20 MG PO (21:26)
[2024-06-18] MEDS: ZOFRAN 4 MG IV (21:26)
[2024-06-18 21:52] LABS: Hepatitis B Surface Antigen Negative (Negative)
[2024-06-18 22:10] LABS: Hepatitis C Antibody Negative (Negative)
[2024-06-19 02:48] LABS: Hepatitis B Surface Antibody Negative
[2024-06-19 03:59] VITALS: BP 140/92
[2024-06-19] MEDS: TORADOL 15 MG IV ×2 (04:15→14:34)
[2024-06-19] MEDS: ZOFRAN 4 MG IV (04:16)
[2024-06-19 06:56] VITALS: BP 135/81
[2024-06-19 07:01] LABS: % Basophils 0.8 % (0-2); % Eosinophils 3.1 % (0-6); % Immature Granulocytes 0.7 % (0-0.5); % Lymphocytes 44.8 % (20.5-51.1); % Monocytes 9.3 % (1.7-9.3); % Neutrophils 41.3 % (42.2-75.2); Absolute Basophils 0.1 10^3/uL (0-0.2); Absolute Eosinophils 0.3 10^3/uL (0-0.7); Absolute Immature Granulocytes 0.1 10^3/uL (0-0.05); Absolute Monocytes 0.8 10^3/uL (0.1-0.6); Absolute Neutrophils 3.7 10^3/uL (1.4-6.5); Hematocrit 43.3 % (37.0-47.0); Hemoglobin 14.5 g/dL (12.0-16.0); Mean Corp Hgb Conc. 33.5 g/dL (33.0-37.0); Mean Corpuscular Hgb 30.1 pg (27.0-31.0); Mean Platelet Volume 10.6 fL (7.4-10.4); Nucleated Red Blood Cells % 0 %; Platelet Count 227 10^3/uL (130-400); Red Blood Cell Count 4.81 10^6/uL (4.20-5.40); Red Cell Dist. Width 13.4 % (11.5-14.5)
[2024-06-19 07:36] LABS: ALT (SGPT) 352 U/L (0-35); AST (SGOT) 70 U/L (14-36); Alkaline Phosphatase 84 U/L (38-126); Blood Urea Nitrogen 15 mg/dl (7-17); Carbon Dioxide 26 mmol/L (22-30); Chloride 106 mmol/L (98-107); Direct Bilirubin 0.1 mg/dl (0.0-0.4); Estimated Creatinine Clearance 99 ml/min; Glucose 88 mg/dl (70-99); Magnesium 2.2 mg/dl (1.6-2.3); Potassium 4.7 mmol/L (3.5-5.1); Sodium 139 mmol/L (135-145); Total Bilirubin 0.5 mg/dl (0.2-1.3); Total Protein 6.3 g/dl (6.3-8.2); eGFR > 60.00
[2024-06-19] MEDS: TOPAMAX 50 MG PO (08:04)
[2024-06-19] MEDS: TOPROL XL 25 MG PO (08:04)
[2024-06-19] MEDS: TOPAMAX 100 MG PO (08:04)
[2024-06-19] MEDS: EFFEXOR XR 75 MG PO (08:04)
[2024-06-19] MEDS: EFFEXOR XR 300 MG PO (08:04)
[2024-06-19] MEDS: NSS (PRESERVATIVE FREE) 10 ML IV (08:08)
[2024-06-19] MEDS: PROTONIX IV 40 MG IV (08:08)
--- NOTE | 2024-06-19 09:35 | W.PN.HOSP.TC ---
Today's Communication/Plan
-
Stress test
Assessment / Plan
Assessment / Plan
58-year-old female with mid epigastric pain, decreased appetite. She recently had headaches for which she was prescribed prednisone for migraines. She also takes Nurtec once a day and Fioricet she is a former smoker but she vapes now
CT scan of chest abdomen and njksqn-fbfpnqap-dlfjp calcified central superior disc extrusion T7/T8 causing mild spinal cord compression and central canal stenosis. Mild dependent subsegmental atelectasis and scarring in the right lower lobe.
Mild diffuse hepatic steatosis, diffuse intrahepatic biliary dilatation, previous cholecystectomy, moderate amount of fecal material in the proximal colon, grade 1 anterolisthesis of L3 on L4 and L4 on L5. Sacralization of L5
MRI-prior cholecystectomy. Mild prominence of the intrahepatic and extrahepatic biliary ducts without evidence of choledocholithiasis or biliary obstruction. Could represent cholecystectomy or possibly recently passed stone.
Awake alert oriented
Cardiovascular system S1-S2 appreciated
Chest clear to auscultation
No spine tenderness
Abdomen soft and nontender
# Chest pain-
States mostly exertional also has exertional shortness of breath.
She has seen Dr. Bernardino Marie
? Gastritis from recent prednisone, ibuprofen-continue PPI. Hold off on any steroids
Radiculopathy pain T7/T8?
Colonoscopy July 2016-normal
Endoscopy July 2021-normal esophagus, erythematous mucosa in the gastric body and antrum, normal duodenum, few gastric polyps
EKG sinus rhythm with PACs-2 sets of troponins negative
Cardiology consultation also requested as patient states that she has a family history of heart disease.
Stress test today
# Acute on chronic intractable migraine headache
She finished prednisone taper prescribed by her neurologist Dr. Morris
Takes Nurtec-to be continued
Also on Effexor, Topamax-continue
BEAN better
Neurology follow up as OP
# Abnormal LFTs, dilated intrahepatic biliary ducts
Hepatitis panel negso far
Tylenol level less than 10-hold Tylenol and statin
LFTs are improving
GI evaluation
MRI as above
? Passed a stone
# Vaping of nicotine
History of smoking cigarettes
Cessation counseling done
Nicotine patch
# Constipation-bowel regimen ordered
# History of alcohol abuse in the past until age 41
No 1-2 drinks per month
# Hyperlipidemia-hold statin secondary to elevated LFTs
# Anxiety and depression-continue Latuda, Effexor
# Hepatic steatosis
# Central superior disc extrusion T7 and T8, anterolisthesis L3 on L4 and L4 on C9-[id number]-mv with outpatient spine-patient made aware. Outpatient follow-up with spine
# Obesity with a BMI of 35
# DVT prophylaxis-Lovenox
# Full code
Discussed with nursing today
Anticipated Discharge: Within 24 hours
Subjective/Interval History
-
Date of Service: June 19, 2024
Objective Data
-
Labs:
Laboratory Results
06/19/24
06:13
WBC 9.0
Hgb 14.5
Hct 43.3
Plt Count 227
Sodium 139
Potassium 4.7
Chloride 106
Carbon Dioxide 26
BUN 15
Creatinine 0.7
Glucose 88
Calcium 9.0
Total Bilirubin 0.5
AST 70 H
ALT 352 H
Alkaline Phosphatase 84
Vital Signs:
Vital Signs
Temp Pulse Resp BP Pulse Ox
98.4 F 81 18 135/81 96
06/19/24 06:56 06/19/24 08:04 06/19/24 06:56 06/19/24 08:04 06/19/24 06:56
I&O
06/18/24 06/19/24 06/20/24
06:59 06:59 06:59
Intake Total 0 / 0 1200 / 1200
Output Total 500 / 500
Balance 0 / 0 700 / 700
[2024-06-19] MEDS: AMINOPHYLLINE 75 MG IV (10:05)
--- NOTE | 2024-06-19 10:51 | W.PN.CARDCBS ---
Addendum entered and electronically signed by Akash Dye DO 06/19/24 16:27:
I saw and examined the patient.
The Wan Support Specialist's note was reviewed and I agree with the note.
Comment:
Plan:
MIBI without ischemia.
Echo with normal EF
Trop negative.
Outpt reeval of hyperlipidemia
Cont beta jerald
Stable cv status for d/c
Outpt follow up with her vp global.
Original Note:
Today's Communication / Plan
-
Stress test with small fixed defects and no evidence of significant ischemia, EF preserved, no additional cardiac testing
Updated hospitalist and GI teams
Impression / Plan
-
PCP: Dr. Berkley Barker
Cardiology: Dr. Marie, last seen in 2021
Impression:
Admitted with chest pain 06/17/24
ATKINSON
Serially normal Troponin
BEAN
Elevated LFTs
Daily vaping and former smoker
h/o ETOH use disorder, cut down to once a month in 2007
HTN
Hyperlipidemia
Exercise stress test 08/29/21: GVH study, completed 9 minutes 36 seconds of Giuliano protocol reaching 85% of maximum predicted heart rate with no ST segment depression observed before during or after exercise, considered a negative stress test
Lexiscan nuclear stress test 06/19/24: Small fixed anteroseptal and inferolateral defects that are predominantly fixed with no evidence of ischemia, EF 70%, borderline 3 times daily at 1.29 but overall study is normal with soft tissue attenuation.
Cardiac MRI 10/17/21: DH study, no MRI evidence of diffuse infiltrative myocardial disease, global systolic RV/LV function normal, LV viability normal, none valvular disease
Echo 08/10/21: GVH study, EF 50 to 55%, mild concentric LVH, top normal RV size with normal RV systolic function and mildly increased RV wall thickness, no MS/MR, normal aortic valve without evidence of stenosis or insufficiency
Echo 06/18/24: EF 65 to 70%, normal regional wall motion, mild concentric LVH
Plan:
-Plan was for exercise nuclear stress test 06/19/24, but patient unable to walk due to migraine BEAN and converted to Lexiscan. Report summarized above and updated patient and medical team with results 06/19/24.
-Patient reports chest pain during stress test that resolved at end of test. Aminophylline IV and caffeinated beverage given.
-Echo from 06/18/24 reviewed by me. EF stable and no WMA.
-Troponin serially normal despite days of chest pain prior to admission.
-Appreciate hospitalist attending restarting outpatient dose of Toprol XL 25 mg daily on 06/19/24.
-LFTs improving, but still twice the upper limit of normal. GI following. MRI abdomen ordered, possible recently passed stone.
-Outpatient dose of atorvastatin 10 mg daily is on hold due to elevated LFTs.
HPI: Patient came to [facility] yesterday with a BEAN for 45 days and chest pain for 3 days and was admitted with elevated LFTs, cardiology has been consulted for chest pain and ATKINSON. Patient went to [facility] for chest pain radiating to her back over the last 3
days. Chest pain happening with activity and resolves with rest. No resting symptoms. Patient also has ATKINSON. Patient had CT chest that was negative for PE and no calcific atherosclerotic plaque in the coronary arteries. Troponin was within the normal
range x2. ECG was SR with nonspecific ST changes. Patient was given NTG SL x1 with some improvement in pain and so a 2nd dose of NTG SL was given with additional pain relief. Patient had similar chest pain and ATKINSON in 2021 and saw ATC at that time
with testing noted above.
Progress Note - Front Office Supervisor
Subjective
Date of Service: June 19, 2024
Chest pain during stress test that resolved
Objective
Labs:
06/19/24 06:13
06/19/24 06:13
Labs
Hgb 14.5 g/dL (12.0-16.0) 06/19/24 06:13
Hct 43.3 % (37.0-47.0) 06/19/24 06:13
Plt Count 227 10^3/uL (130-400) 06/19/24 06:13
PT 13.0 Sec (11.4-14.6) 06/18/24 04:56
INR 0.95 06/18/24 04:56
APTT 23.3 Sec (23.4-35.0) L 06/18/24 04:56
Sodium 139 mmol/L (135-145) 06/19/24 06:13
Potassium 4.7 mmol/L (3.5-5.1) 06/19/24 06:13
BUN 15 mg/dl (7-17) 06/19/24 06:13
Creatinine 0.7 mg/dL (0.6-1.0) 06/19/24 06:13
Glucose 88 mg/dl (70-99) 06/19/24 06:13
Troponins
06/17/24 06/17/24 06/17/24
16:29 18:03 20:45
Troponin I Cancelled 0.024 0.027
Vital Signs and I&O:
Vital Signs
Temp Pulse Resp BP Pulse Ox
98.4 F 81 18 135/81 96
06/19/24 06:56 06/19/24 08:04 06/19/24 06:56 06/19/24 08:04 06/19/24 06:56
Vital Signs
Temp Pulse Resp BP Pulse Ox
98.4 F 81 18 135/81 96
06/19/24 06:56 06/19/24 08:04 06/19/24 06:56 06/19/24 08:04 06/19/24 06:56
Intake & Output
06/17/24 06/18/24 06/19/24 06/20/24
06:59 06:59 06:59 06:59
Intake Total 0 / 0 1200 / 1200
Output Total 500 / 500
Balance 0 / 0 700 / 700
Physical Exam
Physical Exam
GEN: NAD. AAOx3
HEENT: mmm
LUNGS: RA. No wheeze
CV: SR on tele.
ABD: ND
EXT: No edema B/L
NEURO: Gross non-focal
SKIN: No rash
--- NOTE | 2024-06-19 11:16 | PTCARENOTE ---
Report called to floor, refer to Cardiac Services Monitoring record for full assessment. Complete procedure completed by Cardiac Services team (Lexiscan given by nuclear station operator Joseph). Ruben Chakraborty RN gave Aminophylline 75 IV at 1007 for nausea
and headache. Symptoms Resolved after few minutes. Pt tolerated procedure well.
[2024-06-19 11:58] VITALS: BP 140/79
[2024-06-19] MEDS: MIRALAX 17 GRAMS PO (12:00)
[2024-06-19] MEDS: SENOKOT 8.6 MG PO (12:01)
[2024-06-19] MEDS: MILK OF MAGNESIA 30 ML PO (12:01)
--- NOTE | 2024-06-19 13:49 | W.PN.GI.CBS2 ---
Addendum entered and electronically signed by Yamilet Vasquez MD 06/19/24 14:58:
I saw and examined the patient.
The PERENNIAL HOUSE MANAGER's note was reviewed and I agree with the note.
Denies any abdominal pain. Tolerating diet. MRI abdomen-no obstruction. Possible passed stone. LFT .Trending down. s/p cardiac stress test today.
plan
Will recommend follow-up with Dr. Thurman for fatty liver
Daily bowel regimen
No further recommendation. Will sign off
Original Note:
Today's Communication / Plan
-
Etiology of chest pain related to cardiac etiology though trop low on admission but some improvement with nitro s/p stress as noted , biliary with some rise in LFT's and ductal dilation on CT ? passed stone in MRI, constipation related as chronic
issue with chronic nausea, compression fx vs other
MRI with possible passed stone
s/p stress as above and cards eval
slight improved LFT's today may be fatty liver vs passed stone
s/p miralax and senna no stool yet --will need cont bowel regiment on discharge
hepatitis panel neg so far (neg hep BsAg, hep B s ab, hep c), hep A pending
discussed with patient trial of walking to eval for any recurrent symptoms as worse with exercise
OP follow up for fatty liver and constipation. Known to Dr. Thurman in GI office -- info left on discharge
Assessment / Plan
-
Pt is a 58yo present with hx prior ev, anxiety/depression, migraines, diverticulosis, hypercholesterolemia, tobacco/vape abuse, D+E with onset of chest pain last 2-3 days . On admission noted with WBC 12,100, with bili 0.3, AST 246, ALT 535,
alk phos 99. with slight improvement after admission. CT chest/abd/pelvis with noted T7/8 compression with central disc extrusion T7/8 with mild spinal cord compression and canal stenosis, hepatic steatosis, mild diffuse intrahepatic biliary
dilatation, prior colon moderate stool, lumbar spinal disease. Peak trop 0.027. Pt did respond to nitro in ER.
06/18/24 MR Abdomen W/o & W Contrast
Prior cholecystectomy. There is mild prominence of the intrahepatic and extrahepatic bile ducts without evidence of choledocholithiasis or biliary obstruction. Findings may be related prior cholecystectomy, possible recently passed stone.
06/19 Stress test with small fixed defects and no evidence of significant ischemia, EF preserved, no additional cardiac testing
-exertional chest pain
-elevated LFT's
-leukocytosis
-mild diffuse intrahepatic biliary dilatation
-hepatic steatosis on CT
-chronic constipation- with moderate stool on CT
-T7/[address] chest
-occasional NSAID use
-hx ev
other med problems:
-tobacco/vape use
-hypercholesteremia
-diverticulosis
-migraines
-anxiety/depression
-family hx fatty liver
PLAN:
Etiology of chest pain related to cardiac etiology though trop low on admission but some improvement with nitro s/p stress as noted , biliary with some rise in LFT's and ductal dilation on CT ? passed stone in MRI, constipation related as chronic
issue with chronic nausea, compression fx vs other
MRI with possible passed stone
s/p stress as above and cards eval
slight improved LFT's today may be fatty liver vs passed stone
s/p miralax and senna no stool yet --will need cont bowel regiment on discharge
hepatitis panel neg so far (neg hep BsAg, hep B s ab, hep c), hep A pending
discussed with patient trial of walking to eval for any recurrent symptoms as worse with exercise
OP follow up for fatty liver and constipation. Known to Dr. Thurman in GI office -- info left on discharge
Subjective
Subjective
Date of Service: June 19, 2024
low fat diet, no stools after several laxatives some crampy abdominal pain- chest pain improved but has not done much movement since admission
Objective
Data Reviewed
Laboratory Data:
Laboratory Results
06/19/24 06:13
06/19/24 06:13
Laboratory Results
PT 13.0 Sec (11.4-14.6) 06/18/24 04:56
INR 0.95 06/18/24 04:56
APTT 23.3 Sec (23.4-35.0) L 06/18/24 04:56
Phosphorus 4.1 mg/dl (2.5-4.5) 06/18/24 04:59
Magnesium 2.2 mg/dl (1.6-2.3) 06/19/24 06:13
Total Bilirubin 0.5 mg/dl (0.2-1.3) 06/19/24 06:13
AST 70 U/L (14-36) H 06/19/24 06:13
ALT 352 U/L (0-35) H 06/19/24 06:13
Alkaline Phosphatase 84 U/L (38-126) 06/19/24 06:13
Lipase 178 U/L (23-300) 06/17/24 16:29
Vital Signs and I&O:
Vital Signs
Temp Pulse Resp BP Pulse Ox
97.8 F 63 18 140/79 96
06/19/24 11:58 06/19/24 11:58 06/19/24 11:58 06/19/24 11:58 06/19/24 11:58
I&O
06/18/24 06/19/24 06/20/24
06:59 06:59 06:59
Intake Total 0 / 0 1200 / 1200
Output Total 500 / 500
Balance 0 / 0 700 / 700
Physical Exam
Physical Exam
HEENT: Anicteric and Moist mucous membranes
Cardiology: Normal Sinus Rhythm
Pulmonary: Clear
GI: Soft, Non Distended and Non Tender
Extremities: No Edema
Neuro: Non Focal
--- NOTE | 2024-06-19 14:57 | W.PN.UPDATE ---
Addendum entered and electronically signed by Jai Rojas MD 06/19/24 16:18:
Pt had a BM
Original Note:
Update Note
Progress Note Update
Lfts better. May be passed a stone?
Stress test no reversible ischemia
Both GI and Cardiology OK with discharge
Script for LFTS as OP
She will follow with
Continue Bowel regimen at home.
More than 30 minutes spent in discharge including
Final examination of the patient
Summarizing hospital stay
Instructions for continuing care to all relevant caregivers
Preparation of discharge records, prescriptions, and referral forms
Total time spent (in minutes): 33 min
[2024-06-19] MEDS: DULCOLAX 10 MG RECTAL (15:08)
--- NOTE | 2024-06-19 15:13 | W.DS.TRANS ---
Addendum entered and electronically signed by Jai Rojas MD 06/19/24 16:21:
Dictation- [id number]
Original Note:
DC Summary - Shift Nurse Manager
-
Discharge Instructions:
Discharge Diagnosis/Procedures Chest pain
Elevated LFTs
Migraine
Constipation
High cholesterol
Anxiety and depression
Fatty liver
Disc extrusion T7/T8
Anterolisthesis L3 on L4 and L5 on S1
Diet As tolerated
Activity As tolerated
Driving Restrictions As prior to admission
Blood Work LFT sunday
Instructions: Chest Pain That Is Not Caused by the Heart (DC)
Acid Reflux and GERD in Adults (DC)
Chest Pain NON-DHP Finish Molder Follow Up
Stand-Alone Forms:
Changes to Home Medications: Yes
Discharge Medications:
DC Medications w/original date entered in Frequent Browser
venlafaxine 100 mg tablet (Effexor) 375 mg PO DAILY 03/02/09
atorvastatin 10 mg tablet 10 mg PO DAILY 01/10/21
Metoprolol 25 mg PO DAILY head ache ##0 06/19/24
lurasidone 20 mg tablet (Latuda) 20 mg PO HS Mental Health/Anxiety #0 tabs 06/19/24
methylphenidate HCl 36 mg tablet,extended release 24 hr (Concerta) 36 mg PO DAILY Mental Health/Anxiety #0 tabs 06/19/24
omeprazole 20 mg tablet,delayed release 20 mg PO DAILY Gastrointestinal issue #0 tabs 06/19/24
polyethylene glycol 3350 17 gram oral powder packet 17 g PO DAILY Constipation #0 ea 06/19/24
sennosides 8.6 mg tablet (Senna Laxative) 17.2 mg (2 x 8.6 mg) PO HS Constipation #30 tabs 06/19/24
topiramate 150 mg PO BID migraine ##0 06/19/24
Home Medication Changes
Ibuprofen discontinued
MiraLAX and Senokot New
Pending Results: No
[2024-06-19 15:28] VITALS: BP 129/89
--- NOTE | 2024-06-19 16:34 | CM ---
ZUHAIR met with Deanna to complete IA. She lives with her in a 2 story home with no entry steps; bed and bath on the second floor.
Pt is (I) amb and adls. Denies needs post-discharge.
Plan: Discharge to home with no needs.
[2024-06-19 19:20] LABS: Hepatitis A Antibody, Total Negative (Negative)
== END 2024-06-19 17:24 | disposition home or self-care (01) | DRG 313 ==
LOC: 4 EAST ACU 02:16
PROVIDERS: Clinical Nurse Specialist Family Health; Nurse Practitioner Adult Health; Nurse Practitioner Family; Physician Assistant; ADMITTING PHYSICIAN Internal Medicine; ATTENDING PHYSICIAN Hospitalist; CONSULT PHYSICIAN Internal Medicine Cardiovascular Disease; CONSULT PHYSICIAN Internal Medicine Gastroenterology; EMERGENCY PHYSICIAN Emergency Medicine; FAMILY PHYSICIAN Family Medicine
DX: R07.89 Other chest pain (principal); I10 Essential (primary) hypertension; F32.A Depression, unspecified; F41.9 Anxiety disorder, unspecified; G43.909 Migraine, unspecified, not intractable, without status migrainosus; F17.290 Nicotine dependence, other tobacco product, uncomplicated; E66.09 Other obesity due to excess calories; E78.00 Pure hypercholesterolemia, unspecified; K76.0 Fatty (change of) liver, not elsewhere classified; K59.09 Other constipation; M43.16 Spondylolisthesis, lumbar region; M51.24 Other intervertebral disc displacement, thoracic region; D72.829 Elevated white blood cell count, unspecified; Z68.35 Body mass index [BMI] 35.0-35.9, adult; Z88.2 Allergy status to sulfonamides; Z82.49 Family history of ischemic heart disease and other diseases of the circulatory system; Z79.899 Other long term (current) drug therapy
CPT/HCPCS: 71046; 71260; 74177; 74183; 78452; 80053; 80143; 80306; 82010; 82077; 82248; 82607; 82746; 82977; 83690; 83735; 83880; 84100; 84484; 85025; 85379; 85610; 85730; 86706; 86708; 86803; 87070; 87340; 93005; 93017; 93306; 99285; A9500; A9575; J2785; Q9967